=== PATIENT | male | born 1980 | race Caucasian/White ===

== ENCOUNTER 2019-02-09 15:13 | Emergency (ER) | payer BC ==
[~2019-02-09] VITALS: Ht 180.3 cm; Wt 95.0 kg
[2019-02-09 16:16] VITALS: BP 141/80
== END 2019-02-09 17:13 | disposition left against medical advice (07) ==
LOC: ER 15:13
DX: Z53.21 Procedure and treatment not carried out due to patient leaving prior to being seen by health care provider (principal)